=== PATIENT | male | born 1980 | race Caucasian/White ===

== ENCOUNTER 2018-05-08 14:21 | Emergency (ER) | payer OTHER ==
[~2018-05-08] VITALS: Ht 172.7 cm; Wt 79.2 kg
[2018-05-08] MEDS ORDERED: PEN-VEE K,VEET500 MG PO (17:34)
[2018-05-08] MEDS ORDERED: VENTOLIN HFA18 GM IH (17:34)
[2018-05-08 17:50] VITALS: BP 136/81
== END 2018-05-08 17:51 | disposition home or self-care (01) ==
LOC: EME 14:21
DX: K04.7 Periapical abscess without sinus (principal); J45.909 Unspecified asthma, uncomplicated
CPT/HCPCS: 99281; 99283

== ENCOUNTER 2018-05-15 14:49 | Emergency (ER) | payer OTHER ==
[~2018-05-15] VITALS: Ht 170.2 cm; Wt 80.1 kg
[~2018-05-15 14:49] MED LIST: PEN-VEE K,VEET500 MG PO; VENTOLIN HFA18 GM IH
[2018-05-15] MEDS ORDERED: ATARAX,VISTARIL25 MG PO (16:07)
[2018-05-15] MEDS ORDERED: KEFLEX500 MG PO (16:07)
[2018-05-15] MEDS ORDERED: PREDNISONE50 MG PO (16:07)
[2018-05-15 17:27] VITALS: BP 134/73
== END 2018-05-15 17:27 | disposition home or self-care (01) ==
LOC: EME 14:49
DX: L25.9 Unspecified contact dermatitis, unspecified cause (principal); F17.200 Nicotine dependence, unspecified, uncomplicated
CPT/HCPCS: 99281; 99284; J1100; J1200